=== PATIENT | female | born 1955 | race Caucasian/White ===

== ENCOUNTER 2021-10-01 12:32 | Inpatient (IN) | payer MEDICARE ==
[~2021-10-01] VITALS: Ht 167.6 cm; Wt 61.9 kg
[2021-10-01 12:40] VITALS: BP 135/87
[2021-10-01 13:24] LABS: ACT PARTIAL THROMBO TIME 27.3 SECONDS (20.0-32.1)
[2021-10-01 13:28] LABS: ALKALINE PHOSPHATASE 84 U/L (45-117); BUN 21 mg/dl (7-24); CHLORIDE 104 mmol/L (98-107); CREATININE 1.07 mg/dL (0.55-1.02); SGOT/AST 32 IU/L (3-35); SGPT/ALT 29 U/L (12-78); SODIUM 137 mmol/L (136-145); TOTAL PROTEIN 7.2 gm/dL (6.4-8.2)
[2021-10-01 13:29] LABS: BASO % 0.7 % (0.0-1.0); EOS % 0.7 % (1.0-4.0); HEMATOCRIT 40.1 % (37.0-47.0); LYMPH # 1.2 10*3/uL (1.3-4.4); MEAN CELL VOLUME 86.6 fl (81.0-99.0); MEAN CORPUSCULAR HGB 28.5 pg (27.0-31.0); MEAN CORPUSCULAR HGB CONC 32.9 g/dl (33.0-37.0); MEAN PLATELET VOLUME 10.7 fl (9.6-12.3); MONO # 0.4 10*3/uL (0.1-1.0); MONO % 6.6 % (3.0-9.0); NEUT # 4.4 10*3/uL (2.3-7.9); NEUT % 72.7 % (47.0-73.0); PLATELET COUNT AUTOMATED 244 10*3/uL (130-400); RED BLOOD COUNT 4.63 10*6/uL (4.10-5.10); RED CELL DISTRI WIDTH 13.2 % (0-14.5); WHITE BLOOD COUNT 6.1 10*3/uL (4.8-10.8)
[2021-10-01 13:32] LABS: LIPASE 227 U/L (73-393)
[2021-10-01 16:00] VITALS: BP 112/59
[2021-10-01 18:05] VITALS: BP 119/55
[2021-10-01 20:00] VITALS: BP 112/59
[2021-10-02] VITALS: BP 90/44
[2021-10-02 06:37] LABS: BASO % 1.1 % (0.0-1.0); EOS # 0.1 10*3/uL (0.0-0.4); EOS % 2.9 % (1.0-4.0); HEMATOCRIT 37.8 % (37.0-47.0); LYMPH # 1.7 10*3/uL (1.3-4.4); LYMPH % 45.5 % (27.0-41.0); MEAN CELL VOLUME 87.5 fl (81.0-99.0); MEAN CORPUSCULAR HGB 29.2 pg (27.0-31.0); MEAN CORPUSCULAR HGB CONC 33.3 g/dl (33.0-37.0); MONO # 0.4 10*3/uL (0.1-1.0); MONO % 10.4 % (3.0-9.0); NEUT # 1.5 10*3/uL (2.3-7.9); NEUT % 39.8 % (47.0-73.0); PLATELET COUNT AUTOMATED 249 10*3/uL (130-400); RED BLOOD COUNT 4.32 10*6/uL (4.10-5.10); RED CELL DISTRI WIDTH 13.3 % (0-14.5); WHITE BLOOD COUNT 3.8 10*3/uL (4.8-10.8)
[2021-10-02 06:47] LABS: ACT PARTIAL THROMBO TIME 61.5 SECONDS (20.0-32.1)
[2021-10-02 06:57] LABS: BUN 19 mg/dl (7-24); CHLORIDE 110 mmol/L (98-107); CHOLESTEROL 196 mg/dL (<200); CREATININE 0.85 mg/dL (0.55-1.02); POTASSIUM 4.1 mmol/L (3.5-5.1); SGOT/AST 25 IU/L (3-35); SGPT/ALT 24 U/L (12-78); SODIUM 140 mmol/L (136-145); TRIGLYCERIDES 41 mg/dl (<150)
[2021-10-02 07:03] LABS: ALKALINE PHOSPHATASE 77 U/L (45-117); FREE T4 1.05 ng/dl (0.76-1.46); LDL CHOLESTEROL 99 mg/dL (9-159); TOTAL PROTEIN 6.5 gm/dL (6.4-8.2)
[2021-10-02 08:00] VITALS: BP 104/54
[2021-10-02 10:20] LABS: VITAMIN D, 25-HYDROXY 27.9 ng/mL (30-100)
[2021-10-02 12:00] VITALS: BP 105/52
[2021-10-02 16:00] VITALS: BP 128/67
[2021-10-02 20:00] VITALS: BP 115/49
[2021-10-03] VITALS: BP 115/50
[2021-10-03 06:30] LABS: BASO # 0.1 10*3/uL (0.0-0.1); BASO % 1.4 % (0.0-1.0); EOS # 0.1 10*3/uL (0.0-0.4); EOS % 3.1 % (1.0-4.0); HEMATOCRIT 39.5 % (37.0-47.0); LYMPH # 1.5 10*3/uL (1.3-4.4); LYMPH % 42.5 % (27.0-41.0); MEAN CELL VOLUME 88.2 fl (81.0-99.0); MEAN CORPUSCULAR HGB 28.6 pg (27.0-31.0); MEAN CORPUSCULAR HGB CONC 32.4 g/dl (33.0-37.0); MEAN PLATELET VOLUME 11.1 fl (9.6-12.3); MONO # 0.4 10*3/uL (0.1-1.0); MONO % 12.2 % (3.0-9.0); NEUT # 1.5 10*3/uL (2.3-7.9); NEUT % 40.5 % (47.0-73.0); PLATELET COUNT AUTOMATED 243 10*3/uL (130-400); RED BLOOD COUNT 4.48 10*6/uL (4.10-5.10); RED CELL DISTRI WIDTH 13.2 % (0-14.5); WHITE BLOOD COUNT 3.6 10*3/uL (4.8-10.8)
[2021-10-03 06:43] LABS: ALKALINE PHOSPHATASE 72 U/L (45-117); BUN 20 mg/dl (7-24); CHLORIDE 108 mmol/L (98-107); CREATININE 0.92 mg/dL (0.55-1.02); POTASSIUM 4.5 mmol/L (3.5-5.1); SGOT/AST 19 IU/L (3-35); SGPT/ALT 24 U/L (12-78); SODIUM 140 mmol/L (136-145); TOTAL PROTEIN 6.2 gm/dL (6.4-8.2)
[2021-10-03 08:00] VITALS: BP 101/55
[2021-10-03 12:00] VITALS: BP 111/62
[2021-10-03 16:00] VITALS: BP 133/82
[2021-10-03] MEDS ORDERED: LOPRESSOR25 MG PO (16:22)
[2021-10-03] MEDS ORDERED: VITAMIN D3125 MC1 PO (16:22)
[2021-10-03] MEDS ORDERED: ASPIRIN81 M1 PO (16:22)
[2021-10-03] MEDS ORDERED: ATORVASTATIN CA80 M1 PO (16:22)
[2021-10-03 20:00] VITALS: BP 111/57
[2021-10-04] VITALS: BP 99/53
== END 2021-10-04 06:07 | disposition short-term general hospital (02) | DRG 281 ==
LOC: ED 12:32 → 5E 15:06 → EDHOLD 15:06 → 5E 16:43
PROVIDERS: Emergency Medicine; Internal Medicine; ADMIT Family Medicine; ATTEND Family Medicine
DX: I21.4 Non-ST elevation (NSTEMI) myocardial infarction (principal); E87.2 Acidosis; E83.41 Hypermagnesemia; R73.9 Hyperglycemia, unspecified; K21.9 Gastro-esophageal reflux disease without esophagitis; R00.1 Bradycardia, unspecified; Z87.891 Personal history of nicotine dependence; Z82.49 Family history of ischemic heart disease and other diseases of the circulatory system; Z88.8 Allergy status to other drugs, medicaments and biological substances

== ENCOUNTER 2023-07-05 03:04 | Emergency (ER) | payer MEDICARE ==
[~2023-07-05] VITALS: Ht 167.6 cm; Wt 60.3 kg
[~2023-07-05 03:04] MED LIST: ASPIRIN81 M1 PO; ATORVASTATIN CA80 M1 PO; LOPRESSOR25 MG PO; VITAMIN D3125 MC1 PO
[2023-07-05] MEDS ORDERED: BRILINTA60 MG PO (03:17)
[2023-07-05] MEDS ORDERED: CRESTOR5 M1 PO (03:18)
[2023-07-05 03:48] LABS: BASO % 0.9 % (0.0-1.0); EOS # 0.2 10*3/uL (0.0-0.4); EOS % 3.6 % (1.0-4.0); HEMATOCRIT 35.6 % (37.0-47.0); LYMPH # 1.6 10*3/uL (1.3-4.4); LYMPH % 35.8 % (27.0-41.0); MEAN CELL VOLUME 86.6 fl (81.0-99.0); MEAN CORPUSCULAR HGB CONC 33.4 g/dl (33.0-37.0); MEAN PLATELET VOLUME 11.5 fl (9.6-12.3); MONO # 0.4 10*3/uL (0.1-1.0); MONO % 9.8 % (3.0-9.0); NEUT # 2.2 10*3/uL (2.3-7.9); NEUT % 49.9 % (47.0-73.0); PLATELET COUNT AUTOMATED 194 10*3/uL (130-400); RED BLOOD COUNT 4.11 10*6/uL (4.10-5.10); RED CELL DISTRI WIDTH 13.3 % (0-14.5); WHITE BLOOD COUNT 4.4 10*3/uL (4.8-10.8)
[2023-07-05 04:04] LABS: ACT PARTIAL THROMBO TIME 25.2 SECONDS (20.0-32.1)
[2023-07-05 04:08] LABS: ALKALINE PHOSPHATASE 117 U/L (46-116); BUN 25 mg/dl (9-23); CHLORIDE 108 mmol/L (98-107); LIPASE 69 U/L (12-53); POTASSIUM 3.8 mmol/L (3.4-5.1); SGPT/ALT 77 U/L (5-49); TOTAL PROTEIN 6.5 gm/dL (6.0-8.0)
[2023-07-05 05:07] LABS: BILIRUBIN Negative (Negative); BLOOD 3+ (Negative); CLARITY Cloudy (Clear); COLOR Yellow (Yellow); GLUCOSE Negative (Negative); KETONE Negative (Negative); LEUKO ESTERASE Negative (Negative); NITRITE Negative (Negative); PH 6.5 (4.5-8.0)
[2023-07-05 05:26] LABS: BACTERIA TRACE; RBC 16-20 rbc/hpf (0-2)
[2023-07-05] MEDS ORDERED: OMNICEF300 MG PO (07:17)
[2023-07-05] MEDS ORDERED: ONDANSETRON4 MG SL (07:19)
== END 2023-07-05 07:30 | disposition home or self-care (01) ==
LOC: ED 03:04
PROVIDERS: Internal Medicine
DX: R31.9 Hematuria, unspecified (principal); R10.9 Unspecified abdominal pain; R11.2 Nausea with vomiting, unspecified; Z88.8 Allergy status to other drugs, medicaments and biological substances; Z98.51 Tubal ligation status; Z98.890 Other specified postprocedural states; Z87.891 Personal history of nicotine dependence